=== PATIENT | female | born 1985 | race Caucasian/White ===

== ENCOUNTER 2018-11-19 07:27 | Day surgery (SDC) | payer OTHER ==
[~2018-11-19] VITALS: Ht 157.5 cm; Wt 63.0 kg
[2018-11-19] MEDS ORDERED: ATI.5 PO (08:36)
[2018-11-19] MEDS ORDERED: BUPIVACAINE-MPF/EPI 0.25% 30 ML VIAL INJ ONE (09:08)
[2018-11-19] MEDS ORDERED: ceFAZolin 1,000 MG VIAL ONE (09:08)
[2018-11-19] MEDS ORDERED: fentaNYL 0.05 MG/ML VIAL ONE (09:36)
[2018-11-19] MEDS ORDERED: MEPERIDINE 50 MG/ML SYR ONE (09:36)
[2018-11-19] MEDS ORDERED: SUCCINYLCHOLINE CHLORIDE 200 MG/10 ML VIAL IVP ONE (09:36)
[2018-11-19] MEDS ORDERED: MIDAZOLAM 2 MG/2 ML VIAL ONE (09:36)
[2018-11-19] MEDS ORDERED: PROPOFOL 200 MG/20 ML VIAL IV ONE (09:53)
[2018-11-19] MEDS ORDERED: ONDANSETRON 4 MG/2 ML VIAL ONE (09:53)
[2018-11-19] MEDS ORDERED: SEVOFLURANE 250 ML BTL INH ONE (09:53)
[2018-11-19] MEDS ORDERED: DEXAMETHASONE 4 MG/ML VIAL ONE (09:53)
[2018-11-19] MEDS ORDERED: LACTATED RINGERS 1,000 ML IV SCH (10:18)
[2018-11-19] MEDS ORDERED: HYDROmorphone 1 MG/ML AMP IVP PRN ×2 (10:20→11:10)
[2018-11-19] MEDS ORDERED: ONDANSETRON 4 MG/2 ML VIAL IVP PRN (10:20)
[2018-11-19] MEDS ORDERED: MEPERIDINE 25 MG/ML SYR IVP PRN (10:20)
[2018-11-19] MEDS ORDERED: diphenhydrAMINE 50 MG/ML VIAL IVP PRN (10:20)
[2018-11-19] MEDS ORDERED: NACL 0.9% 1,000 ML IV SCH (11:07)
[2018-11-19] MEDS ORDERED: ONDANSETRON 4 MG/2 ML VIAL IV PRN (11:10)
[2018-11-19] MEDS ORDERED: HYDROcodone/APAP 5/325 MG 1 TAB TAB PO PRN (11:10)
[2018-11-19] MEDS ORDERED: MORPHINE SULFATE 2 MG/ML SYR IVP PRN (11:10)
[2018-11-19] MEDS ORDERED: ACETAMINOPHEN 325 MG TAB PO PRN (11:10)
[2018-11-19] MEDS ORDERED: MORPHINE SULFATE 4 MG/ML SYR IV PRN (11:10)
== END 2018-11-19 12:51 | disposition home or self-care (01) ==
LOC: MDS 07:27 → MMU 07:28 → MDS 12:51
PROVIDERS: ATTEND Surgery
DX: K42.9 Umbilical hernia without obstruction or gangrene (principal); F41.9 Anxiety disorder, unspecified; Z90.49 Acquired absence of other specified parts of digestive tract; E66.3 Overweight; Z79.899 Other long term (current) drug therapy
CPT/HCPCS: 49585; 71045; C1781; J0330; J0690; J1100; J1170; J2175; J2250; J2405; J2704; J3010; J3490; J7060; J7120